=== PATIENT | female | born 2000 | race African-American/Black ===

== ENCOUNTER 2020-10-08 20:01 | Emergency (ER) | payer OTHER ==
[2020-10-08 20:18] VITALS: PULSE 64; RESP 18; TEMP 97.6
[2020-10-08 20:40] LABS: Amorphous Sediment,Urine Rare /hpf; Appearance,Urine Cloudy (Clear); Bilirubin,Urine Negative (Negative); Blood,Urine Negative (Negative); Color,Urine Yellow; Glucose,Urine (UA) Negative (Negative); Ketones,Urine Negative (Negative); Leukocyte Esterase,Urine Moderate (Negative); Mucus,Urine Rare /hpf; Nitrite,Urine Negative (Negative); Protein,Urine Negative (Negative); RBC,Urine 2 /hpf (0-5); Specific Gravity,Urine 1.019 (1.001-1.035); Squamous Epithelial Cell,Urine 9 /hpf (0-4); WBC,Urine 3 /hpf (0-5)
--- NOTE | 2020-10-08 20:44 | ED ---
Recheck HPI - General Chief Complaint: Recheck/Abnormal Lab/Rx Stated Complaint: Date check Time Seen by Provider: 10/08/20 20:23 Source: patient Mode of arrival: ambulatory Limitations: no limitations - History of Present Illness Initial Comments: 20-year-old female patient presents to the emergency department today requesting confirmation of . Patient states that she took two tests at home yesterday and wants to confirm that she is . Patient states that her last period was at the end of August. States it was a normal period. States she has been having some nausea and did vomit some bile. She is A2 with 2 elective abortions. She is requesting testing because her and her fiance have been together for 5 years and she never had a with him. She is not on control and they do not use protection. She denies any current abdominal pain, abnormal vaginal bleeding, or abnormal discharge. Denies any genital itching. Denies concern for sexually transmitted infections. She denies any hematuria, dysuria, urinary frequency, urinary urgency. - Related Data Previous Rx's Medication Instructions Recorded Pnv No.95/Ferrous Fum/Folic AC 1 each PO DAILY #30 tablet 10/08/20 [ Multivitamin Tablet] Allergies Allergy/AdvReac Type Severity Reaction Status Date / Time No Known Allergies Allergy Verified 10/08/20 20:19 Review of Systems ROS Statement: Those systems with pertinent positive or pertinent negative responses have been documented in the HPI. ROS Other: All systems not noted in ROS Statement are negative. Past Medical History Past Medical History: No Reported History History of Any Multi-Drug Resistant Organisms: None Reported Past Surgical History: No Surgical Hx Reported Past Psychological History: No Psychological Hx Reported Smoking Status: Never smoker Past Alcohol Use History: None Reported Past Drug Use History: None Reported General Exam Limitations: no limitations General appearance: alert, in no apparent distress, other (This is a well- developed, well-nourished adult female patient in no acute distress. Vital signs upon presentation are temperature 97.6F, pulse 64, respirations 18, pulse ox 99% on room air.) Respiratory exam: Present: normal lung sounds bilaterally. Absent: respiratory distress, wheezes, rales, rhonchi, stridor Cardiovascular Exam: Present: regular rate, normal rhythm, normal heart sounds. Absent: systolic murmur, diastolic murmur, rubs, gallop, clicks GI/Abdominal exam: Present: soft, normal bowel sounds. Absent: distended, tenderness, guarding, rebound, rigid Neurological exam: Present: alert, oriented X3, CN II-XII intact Psychiatric exam: Present: normal affect, normal mood Skin exam: Present: warm, dry, intact, normal color. Absent: rash Course Vital Signs 10/08/20 20:15 Temperature 97.6 F Pulse Rate 64 Respiratory 18 Rate O2 Sat by Pulse 99 Oximetry Medical Decision Making - Medical Decision Making 20-year-old female patient presents to the emergency department today requesting confirmation of . She is having no abdominal pain, vaginal bleeding, or discharge rotation has had some intermittent nausea and has vomited bile. Last menstrual period was the end of August. Physical examination is unremarkable. Urinalysis and hCG was obtained. HCG testing was positive. No evidence for urinary tract infection. Did discuss results with the patient. We'll start vitamin. Based on her last menstrual. She is approximat caryn 4 weeks along. She is instructed to follow-up with her primary care physician and instructed to follow-up with an [employer] for recheck. She is given information for the [facility]. Return parameters were discussed in detail. She verbalizes understanding and agrees with this plan. My attending is Dr. Wong. - Lab Data Lab Results 10/08/20 10/08/20 Range/Units 20:30 20:30 Urine Color Yellow Urine Appearance Cloudy H (Clear) Urine pH 7.0 (5.0-8.0) Ur Specific [place] 1.019 (1.001-1.035) Urine Protein Negative (Negative) Urine Glucose (UA) Negative (Negative) Urine Ketones Negative (Negative) Urine Blood Negative (Negative) Urine Nitrite Negative (Negative) Urine Bilirubin Negative (Negative) Urine Urobilinogen 6.0 (<2.0) mg/dL Ur Leukocyte Esterase Moderate H (Negative) Urine RBC 2 (0-5) /hpf Urine WBC 3 (0-5) /hpf Ur Squamous Epith Cells 9 H (0-4) /hpf Amorphous Sediment Rare H (None) /hpf Urine Mucus Rare H (None) /hpf Urine HCG, Qual Detected (Not Detectd) Disposition Clinical Impression: Early stage of Disposition: HOME SELF-CARE Condition: Good Instructions (If sedation given, give patient instructions): (ED) Additional Instructions: Start vitamins. You can follow-up with the [facility] for early care and ultrasound phone number: [phone]. Services are free and confidential. Return to the emergency department for any new, worsening, or concerning symptoms. Prescriptions: Pnv No.95/Ferrous Fum/Folic AC [ Multivitamin Tablet] 1 each PO DAILY #30 tablet Is patient prescribed a controlled substance at d/c from ED?: No Referrals: Keeley Levine DO [Doctor of Osteopathic Medicine] - 1-2 days Time of Disposition: 20:43
== END 2020-10-08 21:01 | disposition home or self-care (01) ==
LOC: EC 20:01
DX: O21.9 Vomiting of pregnancy, unspecified (principal); Z3A.00 Weeks of gestation of pregnancy not specified
CPT/HCPCS: 81001; 81025

== ENCOUNTER 2021-10-21 17:13 | Emergency (ER) | payer OTHER ==
[2021-10-21 18:33] VITALS: BP 134/88; PULSE 71; RESP 16; TEMP 98.7
[2021-10-21] MEDS ORDERED: CLINDAMYCIN 150 MG CAP PO STA (21:06)
--- NOTE | 2021-10-21 21:09 | ED ---
Skin/Abscess/FB HPI - General Chief complaint: Skin/Abscess/Foreign Body Stated complaint: Female Time Seen by Provider: 10/21/21 20:54 Source: patient, RN notes reviewed Mode of arrival: ambulatory Limitations: no limitations - History of Present Illness Initial comments: This is a pleasant 21-year-old female comes here complaining of a small draining abscess on her buttock. Patient states she's had it before. Patient states it started draining. There is some pain. Os. Denies any problems with bowel movements or urination. No other skin manifestations or lesions. No history of MRSA. No history of immunosuppression. No headache, no fever or chills, no changes in vision or hearing, no sore throat or difficulty with speech, no neck pain, no chest pain or shortness of breath, no abdominal pain, no nausea or vomiting, no changes in urination or bowel movements, no numbness or tingling, no extremity pain, no skin rashes or lesions. - Related Data Previous Rx's Medication Instructions Recorded Pnv No.95/Ferrous Fum/Folic AC 1 each PO DAILY #30 tablet 10/08/20 [ Multivitamin Tablet] Acetaminophen [Tylenol] 500 mg PO Q4-6H PRN #24 tab 10/21/21 Naproxen [Naprosyn] 375 mg PO Q12HR PRN #20 tablet 10/21/21 clindamycin HCL [Cleocin] 300 mg PO Q6HR #40 cap 10/21/21 Allergies Allergy/AdvReac Type Severity Reaction Status Date / Time No Known Allergies Allergy Verified 10/21/21 18:31 Review of Systems ROS Statement: Those systems with pertinent positive or pertinent negative responses have been documented in the HPI. ROS Other: All systems not noted in ROS Statement are negative. Past Medical History Past Medical History: No Reported History History of Any Multi-Drug Resistant Organisms: None Reported Past Surgical History: No Surgical Hx Reported Past Psychological History: No Psychological Hx Reported Smoking Status: Never smoker Past Alcohol Use History: None Reported Past Drug Use History: None Reported General Exam Limitations: no limitations General appearance: alert, in no apparent distress Head exam: Present: atraumatic, normocephalic, normal inspection Eye exam: Present: normal appearance, PERRL, EOMI. Absent: scleral icterus, conjunctival injection, periorbital swelling ENT exam: Present: normal exam, mucous membranes moist Neck exam: Present: normal inspection. Absent: tenderness, meningismus, lymphadenopathy Respiratory exam: Present: normal lung sounds bilaterally. Absent: respiratory distress, wheezes, rales, rhonchi, stridor Cardiovascular Exam: Present: regular rate, normal rhythm, normal heart sounds. Absent: systolic murmur, diastolic murmur, rubs, gallop, clicks GI/Abdominal exam: Present: soft, normal bowel sounds. Absent: distended, tenderness, guarding, rebound, rigid Rectal exam: Present: normal rectal tone, other (Patient has a small draining abscess to the left buttock area. No current medication with the rectal wall. No secondary cellulitis.) Extremities exam: Present: normal inspection, full ROM, normal capillary refill. Absent: tenderness, pedal edema, joint swelling, calf tenderness Back exam: Present: normal inspection Neurological exam: Present: alert, oriented X3, CN II-XII intact Psychiatric exam: Present: normal affect, normal mood Skin exam: Present: warm, dry, intact, normal color. Absent: rash Course Vital Signs 10/21/21 18:32 Temperature 98.7 F Pulse Rate 71 Respiratory 16 Rate Blood Pressure 134/88 O2 Sat by Pulse 99 Oximetry Medical Decision Making - Medical Decision Making Patient presents to symptomology consistent with a tiny, draining abscess approximately 1 cm to left buttock. Minimal purulent drainage. No secondary cellulitis. Patient looks well otherwise. Vital signs stable, patient afebrile. Treatment with clindamycin 300 mg 4 times a day, warm compresses. She will plan discussed with the patient. All questions answered. Patient was told to return to the ER for any signs or symptoms worsen. Told to return immediately if any other problems arise. All questions answered. Treatment plan discussed. Patient in agreement Every effort has been made to ensure accuracy of this dictation. However, due to the limitations of electronic medical records and dictation devices, errors in charting still occur. Disposition Clinical Impression: Abscess of buttock Disposition: HOME SELF-CARE Condition: Stable Instructions (If sedation given, give patient instructions): Abscess (ED) Additional Instructions: Use warm compresses with a clean washcloth, soap, and water for 10-15 minutes at a time. Due to this 4 times daily. Alternatively, you can use and Epsom salt bath. Take antibiotics as directed. Return to the ER immediately if any symptoms worsen, new symptoms arise, or any other problems develop. Is patient prescribed a controlled substance at d/c from ED?: No Referrals: None,Stated [Primary Care Provider] - 1-2 days Time of Disposition: 21:09
== END 2021-10-21 21:36 | disposition home or self-care (01) ==
LOC: EC 17:13
DX: L02.31 Cutaneous abscess of buttock (principal)
CPT/HCPCS: 99282